=== PATIENT | male | born 1935 | race Caucasian/White ===

== ENCOUNTER 2016-10-17 16:29 | Emergency (ER) | payer MEDICARE, BC ==
[2016-10-17 17:50] VITALS: BP 145/82; PULSE 61; RESP 22; TEMP 98.7; O2SAT 93
== END 2016-10-17 19:29 | disposition home or self-care (01) | DRG 203 ==
LOC: ED 16:29
DX: J20.9 Acute bronchitis, unspecified (principal)
CPT/HCPCS: 87430; 87804; 99282; 99283

== ENCOUNTER 2016-11-23 13:33 | Day surgery (SDC) | payer MEDICARE, BC ==
[2016-11-23] MEDS ORDERED: BUPIVACAINE HCL 0.5% MPF 10 ML SOL ONE (14:34)
[2016-11-23] MEDS ORDERED: TRIAMCINOLONE ACETONIDE 40 MG/ML SUS ONE (14:34)
[2016-11-23 15:11] VITALS: TEMP 98.2
[2016-11-23 15:30] VITALS: BP 119/58; PULSE 56; RESP 10; O2SAT 96
== END 2016-11-23 15:28 | disposition home or self-care (01) | DRG 554 ==
LOC: SURG 13:33
PROVIDERS: ATTEND Nurse Anesthetist, Certified Registered
DX: M12.9 Arthropathy, unspecified (principal)
CPT/HCPCS: G0260; J3300

== ENCOUNTER 2016-12-07 06:46 | Day surgery (SDC) | payer MEDICARE, BC ==
[2016-12-07] MEDS ORDERED: PROPOFOL 500 MG/50 ML EMU IV ONE (07:06)
[2016-12-07] MEDS ORDERED: LIDOCAINE HCL 1% MPF SOL ONE (07:06)
[2016-12-07 09:18] VITALS: O2SAT 95
[2016-12-07 09:39] VITALS: BP 105/59; PULSE 57; RESP 18; TEMP 96.8
== END 2016-12-07 10:03 | disposition home or self-care (01) | DRG 951 ==
LOC: SURG 06:46
PROVIDERS: ATTEND Internal Medicine Gastroenterology
DX: Z12.11 Encounter for screening for malignant neoplasm of colon (principal); D12.3 Benign neoplasm of transverse colon; Z85.038 Personal history of other malignant neoplasm of large intestine; Z98.0 Intestinal bypass and anastomosis status; K57.30 Diverticulosis of large intestine without perforation or abscess without bleeding; K64.8 Other hemorrhoids
CPT/HCPCS: J2001; J2704

== ENCOUNTER 2018-07-21 08:17 | Outpatient (CLI) | payer MEDICARE, BC | END 2018-07-21 08:18 | disposition home or self-care (01) | DRG 556 | LOC: CONVCARE 08:17 | PROVIDERS: ATTEND Orthopaedic Surgery | DX: M25.531 Pain in right wrist (principal); M25.532 Pain in left wrist | CPT/HCPCS: 72220; 73110; 73562 ==

== ENCOUNTER 2018-11-27 20:18 | Inpatient (IN) | payer MEDICARE, BC ==
[2018-11-27] MEDS ORDERED: ACETAMINOPHEN 500 MG 500 MG TAB PO ONE (20:38)
[2018-11-27] MEDS ORDERED: ACETAMINOPHEN 500 MG 500 MG TAB ONE ×2 (20:39→20:40)
[2018-11-27 20:56] LABS: LACTIC ACID 2.1 mMol/L (0.0-2.0)
[2018-11-27 20:59] LABS: INR 2.72 (0.86-1.12)
[2018-11-27 21:06] LABS: BASOPHILS % (AUTO) 0 % (0-3); EOSINOPHILS % (AUTO) 0 % (0-9); HEMATOCRIT 40 % (39-53); HEMOGLOBIN 12.8 gm/dl (13.5-17.7); LYMPHOCYTES % (AUTO) 7.1 % (10-50); MEAN CORPUSCULAR HEMOGLOBIN 29.8 pg (27.0-32.0); MEAN CORPUSCULAR HGB CONC 32.2 gm/dl (32.0-36.0); MEAN CORPUSCULAR VOLUME 93 fL (80-100); MONOCYTES % (AUTO) 1.6 % (0-12); NEUTROPHILS % (AUTO) 90.6 % (37-80)
[2018-11-27 21:09] LABS: ALBUMIN 3.3 gm/dl (3.4-5.0); ALKALINE PHOSPHATASE 76 IU/L (46-116); ALT 24 IU/L (14-63); AST 17 IU/L (15-37); BILIRUBIN,TOTAL 0.7 mg/dl (0.2-1.0); BLOOD UREA NITROGEN 28 mg/dl (7-18); CALCIUM 8.6 mg/dl (8.5-10.1); CARBON DIOXIDE 26.5 mEq/L (21-32); CHLORIDE 107 mMol/L (98-107); CREATININE 1.39 mg/dl (0.80-1.30); GLUCOSE 107 mg/dl (74-106); POTASSIUM 3.9 mMol/L (3.5-5.1); SODIUM 142 mMol/L (136-145); TOTAL PROTEIN 6.4 gm/dl (6.4-8.2); TROP I < 0.017 ng/ml (0.000-0.056)
[2018-11-27 21:57] LABS: APPEARANCE,URINE Clear; BILIRUBIN,URINE NEGATIVE (NEGATIVE); COLOR,URINE Yellow; GLUCOSE, URINE (UA) NEGATIVE (NEGATIVE); KETONES,URINE NEGATIVE (NEGATIVE); LEUKOCYTE ESTERASE ,URINE NEGATIVE (NEGATIVE); NITRATE,URINE NEGATIVE (NEGATIVE); OCCULT BLOOD,URINE TRACE INTACT (NEG-TRACE); UROBILINOGEN,URINE 0.2 (0.2-1.0 EU)
[2018-11-27] MEDS ORDERED: VANCOMYCIN HCL 500 MG PDS 1,000 MG in SODIUM CHLORIDE 0.9% 250 ML 250 ML IV ONE (21:59)
[2018-11-27 22:07] LABS: BACTERIA TRACE (< 1+); CRYSTALS NEGATIVE (0-3 AVE/HPF); EPITHELIAL CELLS 0-1 (SQUAMOUS); RBC,URINE 0-3 (0-3AV/HPF); WBC,URINE 0-1 (0-5AV/HPF)
[2018-11-27] MEDS ORDERED: PIPERACILLIN/TAZOBACT 3.375 GM PDS IV ONE (22:13)
[2018-11-27] MEDS: PIPERACILLIN/TAZOBACT 3.375 GM 3.375 GM in SODIUM CHLORIDE 0.9% 100 ML 100 ML IV SCH (22:15)
[2018-11-27] MEDS ORDERED: BUDESONIDE/FORMOTEROL 160/4.5 AER INH PRN (22:16)
[2018-11-27] MEDS ORDERED: GABAPENTIN 300 MG CAP PO PRN (22:16)
[2018-11-27] MEDS ORDERED: VANCOMYCIN HYDROCHLORIDE 500 MG PDS IV ONE (22:54)
[2018-11-27] MEDS ORDERED: SODIUM CHLORIDE 0.9% 250 ML 250 ML IV ONE (22:55)
[2018-11-27] MEDS: SODIUM CHLORIDE 0.9% FLUSH 10 ML SOL IV SCH (22:59)
[2018-11-27] MEDS: SODIUM CHLORIDE 0.9% 1000ML 1,000 ML IV SCH (23:06)
[2018-11-28] MEDS ORDERED: SODIUM CHLORIDE 0.9% 500 ML 500 ML IV ONE ×3 (00:35→11:54)
[2018-11-28] MEDS: TRAMADOL HYDROCHLORIDE 50 MG TAB PO PRN ×3 (00:47→21:01)
[2018-11-28] MEDS: SODIUM CHLORIDE 0.9% 1000ML 1,000 ML IV SCH ×3 (02:40→16:54)
[2018-11-28] MEDS ORDERED: PIPERACILLIN/TAZOBACT 3.375 GM PDS IV ONE ×3 (06:23→22:12)
[2018-11-28] MEDS ORDERED: SODIUM CHLORIDE 0.9% 100 ML 100 ML IV ONE ×3 (06:23→22:12)
[2018-11-28] MEDS: PIPERACILLIN/TAZOBACT 3.375 GM 3.375 GM in SODIUM CHLORIDE 0.9% 100 ML 100 ML IV SCH ×3 (06:29→22:29)
[2018-11-28] MEDS: SODIUM CHLORIDE 0.9% FLUSH 10 ML SOL IV SCH ×5 (06:30→22:31)
[2018-11-28 07:28] LABS: CALCIUM 7.7 mg/dl (8.5-10.1); CARBON DIOXIDE 23.3 mEq/L (21-32); CREATININE 1.58 mg/dl (0.80-1.30); POTASSIUM 4.2 mMol/L (3.5-5.1)
[2018-11-28 07:29] LABS: HEMATOCRIT 33 % (39-53); HEMOGLOBIN 10.6 gm/dl (13.5-17.7); MEAN CORPUSCULAR HEMOGLOBIN 30.1 pg (27.0-32.0); MEAN CORPUSCULAR HGB CONC 32.1 gm/dl (32.0-36.0); MEAN CORPUSCULAR VOLUME 94 fL (80-100)
[2018-11-28 07:38] LABS: INR 2.55 (0.86-1.12)
[2018-11-28 07:54] LABS: BAND NEUTROPHILS % (MANUAL) 11 %; BASOPHILS % (MANUAL) 0 % (0-3); EOSINOPHILS % (MANUAL) 0 % (0-9); LYMPHOCYTES % (MANUAL) 6 % (10-50); MONOCYTES % (MANUAL) 4 % (0-12); NEUTROPHILS % (MANUAL) 78 % (37-80); NORMAL RBCS PRESENT
[2018-11-28] MEDS ORDERED: SODIUM CHLORIDE 0.9% 1000ML 1,000 ML IV ONE (08:47)
[2018-11-28] MEDS ORDERED: OLMESARTAN MEDOXOMIL 20 MG TAB PO SCH (09:00)
[2018-11-28] MEDS ORDERED: OMEPRAZOLE 20 MG CAPSULE PO SCH (09:00)
[2018-11-28] MEDS: ATORVASTATIN 10 MG TAB PO SCH (10:08)
[2018-11-28] MEDS: GABAPENTIN 300 MG CAP PO SCH ×2 (10:11→21:01)
[2018-11-28] MEDS: PANTOPRAZOLE SODIUM 40 MG ECT PO SCH (10:11)
[2018-11-28] MEDS ORDERED: ENOXAPARIN 40 MG SOL SC ONE (10:48)
[2018-11-28] MEDS: PROPAFENONE HCL 150 MG PO SCH ×3 (11:07→21:01)
[2018-11-28 13:51] LABS: BASOPHILS % (AUTO) 0 % (0-3); EOSINOPHILS % (AUTO) 1 % (0-9); HEMATOCRIT 33 % (39-53); HEMOGLOBIN 10.4 gm/dl (13.5-17.7); MEAN CORPUSCULAR HEMOGLOBIN 29.8 pg (27.0-32.0); MEAN CORPUSCULAR HGB CONC 31.9 gm/dl (32.0-36.0); MEAN CORPUSCULAR VOLUME 94 fL (80-100); NEUTROPHILS % (AUTO) 88.2 % (37-80)
[2018-11-28 13:56] LABS: BLOOD UREA NITROGEN 30 mg/dl (7-18); CALCIUM 7.5 mg/dl (8.5-10.1); CARBON DIOXIDE 22.4 mEq/L (21-32); CHLORIDE 111 mMol/L (98-107); GLUCOSE 116 mg/dl (74-106); SODIUM 141 mMol/L (136-145); TROP I < 0.017 ng/ml (0.000-0.056)
[2018-11-28] MEDS ORDERED: PHARMACOKINETICS 1 MISC ONE (15:00)
[2018-11-28 15:25] LABS: INR 2.47 (0.86-1.12)
[2018-11-28] MEDS: BUDESONIDE/FORMOTEROL 160/4.5 AER INH SCH ×2 (15:25→23:15)
[2018-11-28] MEDS ORDERED: WARFARIN SODIUM 5 MG TAB PO SCH ×2 (18:00)
[2018-11-28] MEDS: ACETAMINOPHEN 325 MG PO PRN (19:24)
[2018-11-28] MEDS ORDERED: VANCOMYCIN HYDROCHLORIDE 500 MG PDS IV ONE (23:04)
[2018-11-28] MEDS ORDERED: SODIUM CHLORIDE 0.9% 250 ML 250 ML IV ONE (23:05)
[2018-11-28] MEDS: VANCOMYCIN HCL 500 MG PDS 1,000 MG in SODIUM CHLORIDE 0.9% 250 ML 250 ML IV SCH (23:16)
[2018-11-29] MEDS: ALBUTEROL/IPRATROPIUM 1 VIAL SOL INH PRN (03:22)
[2018-11-29] MEDS: ACETAMINOPHEN 325 MG PO PRN (05:25)
[2018-11-29] MEDS ORDERED: PIPERACILLIN/TAZOBACT 3.375 GM PDS IV ONE ×3 (06:22→20:42)
[2018-11-29] MEDS ORDERED: SODIUM CHLORIDE 0.9% 100 ML 100 ML IV ONE ×3 (06:22→20:42)
[2018-11-29] MEDS: SODIUM CHLORIDE 0.9% FLUSH 10 ML SOL IV SCH ×5 (06:29→23:04)
[2018-11-29] MEDS: PIPERACILLIN/TAZOBACT 3.375 GM 3.375 GM in SODIUM CHLORIDE 0.9% 100 ML 100 ML IV SCH ×3 (06:29→21:05)
[2018-11-29 07:37] LABS: CALCIUM 8.1 mg/dl (8.5-10.1); CARBON DIOXIDE 20.8 mEq/L (21-32); CREATININE 1.09 mg/dl (0.80-1.30); POTASSIUM 4.3 mMol/L (3.5-5.1)
[2018-11-29 07:40] LABS: INR 1.86 (0.86-1.12)
[2018-11-29 07:41] LABS: BASOPHILS % (AUTO) 1 % (0-3); EOSINOPHILS % (AUTO) 0 % (0-9); HEMATOCRIT 32 % (39-53); HEMOGLOBIN 10.1 gm/dl (13.5-17.7); LYMPHOCYTES % (AUTO) 8.4 % (10-50); MEAN CORPUSCULAR HGB CONC 31.5 gm/dl (32.0-36.0); MEAN CORPUSCULAR VOLUME 95 fL (80-100); MONOCYTES % (AUTO) 7.8 % (0-12); NEUTROPHILS % (AUTO) 82.6 % (37-80)
[2018-11-29] MEDS ORDERED: FUROSEMIDE 20mg SOL IV ONE (08:15)
[2018-11-29] MEDS: PROPAFENONE HCL 150 MG PO SCH ×3 (08:54→20:49)
[2018-11-29] MEDS: PANTOPRAZOLE SODIUM 40 MG ECT PO SCH (08:55)
[2018-11-29] MEDS: BUDESONIDE/FORMOTEROL 160/4.5 AER INH SCH ×2 (08:55→20:52)
[2018-11-29] MEDS: GABAPENTIN 300 MG CAP PO SCH ×2 (08:55→20:49)
[2018-11-29] MEDS: ATORVASTATIN 10 MG TAB PO SCH (08:56)
[2018-11-29] MEDS: POLYETHYLENE GLYCOL 17 GM/1 TBS PDS PO SCH (09:32)
[2018-11-29] MEDS ORDERED: VANCOMYCIN HYDROCHLORIDE 500 MG PDS IV ONE ×2 (11:10→22:53)
[2018-11-29] MEDS ORDERED: SODIUM CHLORIDE 0.9% 250 ML 250 ML IV ONE ×2 (11:11→22:55)
[2018-11-29] MEDS: VANCOMYCIN HCL 500 MG PDS 1,000 MG in SODIUM CHLORIDE 0.9% 250 ML 250 ML IV SCH ×2 (11:22→23:03)
[2018-11-29] MEDS ORDERED: WARFARIN SODIUM 2.5 MG TAB PO SCH (18:00)
[2018-11-29] MEDS: TRAMADOL HYDROCHLORIDE 50 MG TAB PO PRN (20:50)
[2018-11-30] MEDS ORDERED: SODIUM CHLORIDE 0.9% 100 ML 100 ML IV ONE (04:36)
[2018-11-30] MEDS ORDERED: PIPERACILLIN/TAZOBACT 3.375 GM PDS IV ONE (04:36)
[2018-11-30] MEDS: SODIUM CHLORIDE 0.9% FLUSH 10 ML SOL IV SCH ×4 (05:54→21:15)
[2018-11-30] MEDS: PIPERACILLIN/TAZOBACT 3.375 GM 3.375 GM in SODIUM CHLORIDE 0.9% 100 ML 100 ML IV SCH (05:55)
[2018-11-30] MEDS: ALBUTEROL/IPRATROPIUM 1 VIAL SOL INH PRN (07:34)
[2018-11-30] MEDS: TRAMADOL HYDROCHLORIDE 50 MG TAB PO PRN ×2 (07:34→20:55)
[2018-11-30 08:23] LABS: INR 1.59 (0.86-1.12)
[2018-11-30 08:35] LABS: HEMATOCRIT 32 % (39-53); HEMOGLOBIN 10.5 gm/dl (13.5-17.7); MEAN CORPUSCULAR HEMOGLOBIN 29.9 pg (27.0-32.0); MEAN CORPUSCULAR HGB CONC 32.5 gm/dl (32.0-36.0); MEAN CORPUSCULAR VOLUME 92 fL (80-100)
[2018-11-30 08:40] LABS: BLOOD UREA NITROGEN 17 mg/dl (7-18); CALCIUM 8.2 mg/dl (8.5-10.1); CARBON DIOXIDE 24.6 mEq/L (21-32); CHLORIDE 108 mMol/L (98-107); CREATININE 1.06 mg/dl (0.80-1.30); GLUCOSE 98 mg/dl (74-106); POTASSIUM 4.1 mMol/L (3.5-5.1); SODIUM 141 mMol/L (136-145); TROP I < 0.017 ng/ml (0.000-0.056)
[2018-11-30] MEDS ORDERED: FUROSEMIDE 40 MG SOL IV SCH (09:00)
[2018-11-30] MEDS: PANTOPRAZOLE SODIUM 40 MG ECT PO SCH (09:19)
[2018-11-30] MEDS: PROPAFENONE HCL 150 MG PO SCH ×3 (09:19→20:33)
[2018-11-30] MEDS: ATORVASTATIN 10 MG TAB PO SCH (09:19)
[2018-11-30] MEDS: GABAPENTIN 300 MG CAP PO SCH ×2 (09:20→20:32)
[2018-11-30] MEDS: BUDESONIDE/FORMOTEROL 160/4.5 AER INH SCH ×2 (09:20→20:34)
[2018-11-30] MEDS: POLYETHYLENE GLYCOL 17 GM/1 TBS PDS PO SCH (09:25)
[2018-11-30] MEDS ORDERED: LEVOFLOXACIN 25 MG/ML 500 MG in SODIUM CHLORIDE 0.9% 100 ML 100 ML IV SCH (09:45)
[2018-11-30 09:50] LABS: BAND NEUTROPHILS % (MANUAL) 1 %; BASOPHILS % (MANUAL) 0 % (0-3); EOSINOPHILS % (MANUAL) 2 % (0-9); LYMPHOCYTES % (MANUAL) 19 % (10-50); MONOCYTES % (MANUAL) 10 % (0-12); NEUTROPHILS % (MANUAL) 68 % (37-80); NORMAL RBCS NORMAL RBCS; PLATELET MORPHOLOGY COMMENT DECREASED
[2018-11-30] MEDS: LEVOFLOXACIN 500 MG TAB PO SCH (13:36)
[2018-11-30] MEDS: WARFARIN SODIUM 5 MG TAB PO SCH (17:57)
[2018-11-30] MEDS ORDERED: CETIRIZINE HYDROCHLORIDE 10 MG TAB PO ONE (21:03)
[2018-12-01] MEDS: SODIUM CHLORIDE 0.9% FLUSH 10 ML SOL IV SCH ×4 (07:02→23:20)
[2018-12-01 07:22] LABS: BASOPHILS % (AUTO) 1 % (0-3); EOSINOPHILS % (AUTO) 2 % (0-9); HEMATOCRIT 35 % (39-53); HEMOGLOBIN 11.4 gm/dl (13.5-17.7); MEAN CORPUSCULAR HEMOGLOBIN 30.3 pg (27.0-32.0); MEAN CORPUSCULAR HGB CONC 32.7 gm/dl (32.0-36.0); MEAN CORPUSCULAR VOLUME 93 fL (80-100); MONOCYTES % (AUTO) 9.6 % (0-12); NEUTROPHILS % (AUTO) 65.6 % (37-80)
[2018-12-01 07:30] LABS: INR 1.47 (0.86-1.12)
[2018-12-01 07:33] LABS: CALCIUM 8.6 mg/dl (8.5-10.1); CARBON DIOXIDE 26.7 mEq/L (21-32); CREATININE 1.05 mg/dl (0.80-1.30); POTASSIUM 3.9 mMol/L (3.5-5.1)
[2018-12-01] MEDS ORDERED: FUROSEMIDE 40 MG SOL IV SCH (09:00)
[2018-12-01] MEDS: ATORVASTATIN 10 MG TAB PO SCH (09:04)
[2018-12-01] MEDS: PANTOPRAZOLE SODIUM 40 MG ECT PO SCH (09:04)
[2018-12-01] MEDS: GABAPENTIN 300 MG CAP PO SCH ×2 (09:04→20:23)
[2018-12-01] MEDS: POLYETHYLENE GLYCOL 17 GM/1 TBS PDS PO SCH (09:05)
[2018-12-01] MEDS: PROPAFENONE HCL 150 MG PO SCH ×3 (09:05→20:23)
[2018-12-01] MEDS: BUDESONIDE/FORMOTEROL 160/4.5 AER INH SCH ×2 (09:06→20:24)
[2018-12-01] MEDS: LEVOFLOXACIN 500 MG TAB PO SCH (09:08)
[2018-12-01] MEDS: TRAMADOL HYDROCHLORIDE 50 MG TAB PO PRN (16:35)
[2018-12-01] MEDS: WARFARIN SODIUM 5 MG TAB PO SCH (17:54)
[2018-12-01] MEDS ORDERED: CETIRIZINE HYDROCHLORIDE 10 MG TAB PO SCH ×2 (21:00)
[2018-12-02] MEDS: SODIUM CHLORIDE 0.9% FLUSH 10 ML SOL IV SCH (06:40)
[2018-12-02 08:07] LABS: CALCIUM 8.3 mg/dl (8.5-10.1); CARBON DIOXIDE 26.6 mEq/L (21-32); CREATININE 1.07 mg/dl (0.80-1.30); POTASSIUM 3.9 mMol/L (3.5-5.1)
[2018-12-02 08:23] LABS: BASOPHILS % (AUTO) 1 % (0-3); EOSINOPHILS % (AUTO) 2 % (0-9); HEMATOCRIT 34 % (39-53); HEMOGLOBIN 10.8 gm/dl (13.5-17.7); LYMPHOCYTES % (AUTO) 21.9 % (10-50); MEAN CORPUSCULAR HEMOGLOBIN 29.9 pg (27.0-32.0); MEAN CORPUSCULAR HGB CONC 32.1 gm/dl (32.0-36.0); MEAN CORPUSCULAR VOLUME 93 fL (80-100); MONOCYTES % (AUTO) 10.8 % (0-12); NEUTROPHILS % (AUTO) 64.1 % (37-80)
[2018-12-02 08:43] LABS: INR 1.35 (0.86-1.12)
[2018-12-02] MEDS: LEVOFLOXACIN 500 MG TAB PO SCH (09:20)
[2018-12-02] MEDS: GABAPENTIN 300 MG CAP PO SCH (09:20)
[2018-12-02] MEDS: POLYETHYLENE GLYCOL 17 GM/1 TBS PDS PO SCH (09:21)
[2018-12-02] MEDS: PROPAFENONE HCL 150 MG PO SCH ×2 (09:21→14:03)
[2018-12-02] MEDS: PANTOPRAZOLE SODIUM 40 MG ECT PO SCH (09:21)
[2018-12-02] MEDS: BUDESONIDE/FORMOTEROL 160/4.5 AER INH SCH (09:22)
[2018-12-02] MEDS: ATORVASTATIN 10 MG TAB PO SCH (09:23)
[2018-12-02 09:27] VITALS: BP 103/50; PULSE 58; TEMP 97.2
[2018-12-02] MEDS: TRAMADOL HYDROCHLORIDE 50 MG TAB PO PRN (09:29)
[2018-12-02 10:05] VITALS: RESP 20; O2SAT 92
== END 2018-12-02 14:10 | disposition home or self-care (01) | DRG 872 ==
LOC: ED 20:18 → ACUTE CARE 22:09
PROVIDERS: ADMIT Family Medicine; ATTEND Family Medicine
PROC: F01L5ZZ Range of Motion and Joint Integrity Assessment of Musculoskeletal System - Lower Back / Lower Extremity (ICD-10-PCS; principal; 2018-11-30)
PROC: F01L0ZZ Muscle Performance Assessment of Musculoskeletal System - Lower Back / Lower Extremity (ICD-10-PCS; 2018-11-30)
PROC: F01ZBZZ Bed Mobility Assessment (ICD-10-PCS; 2018-11-30)
DX: A41.9 Sepsis, unspecified organism (principal); I48.2 Chronic atrial fibrillation; J98.11 Atelectasis; R06.02 Shortness of breath; R07.9 Chest pain, unspecified; R60.9 Edema, unspecified; R09.02 Hypoxemia; B96.20 Unspecified Escherichia coli [E. coli] as the cause of diseases classified elsewhere; Z79.01 Long term (current) use of anticoagulants
CPT/HCPCS: 36415; 51798; 71045; 80048; 80053; 81001; 83880; 84484; 85007; 85025; 85027; 85610; 85730; 87040; 93005; 94640; 94664; 94762; 99222; 99291; J1650; J1940; J2543; J3370; A9270-GY

== ENCOUNTER 2018-12-27 11:58 | Day surgery (SDC) | payer MEDICARE, BC ==
[2018-12-27] MEDS ORDERED: BUPIVACAINE HCL 0.25% MPF 30 ML SOL INFIL ONE (12:57)
[2018-12-27] MEDS: TRIAMCINOLONE ACETONIDE 40 MG/ML SUS ONE ×3 (13:07→13:19)
[2018-12-27 13:17] VITALS: O2SAT 94
[2018-12-27 13:34] VITALS: BP 107/72; PULSE 70; RESP 18; TEMP 97.6
== END 2018-12-27 13:55 | disposition home or self-care (01) | DRG 554 ==
LOC: SURG 11:58
PROVIDERS: ATTEND Nurse Anesthetist, Certified Registered
DX: M12.9 Arthropathy, unspecified (principal)
CPT/HCPCS: J3300

== ENCOUNTER 2019-01-27 13:57 | Emergency (ER) | payer MEDICARE, BC ==
[2019-01-27 14:35] VITALS: PULSE 68; TEMP 97.1
[2019-01-27 14:59] LABS: HEMATOCRIT 37 % (39-53); MEAN CORPUSCULAR HEMOGLOBIN 30.2 pg (27.0-32.0); MEAN CORPUSCULAR HGB CONC 32.4 gm/dl (32.0-36.0); MEAN CORPUSCULAR VOLUME 93 fL (80-100)
[2019-01-27 15:08] LABS: INR 2.26 (0.86-1.12)
[2019-01-27 15:31] VITALS: BP 125/64; RESP 18; O2SAT 95
[2019-01-27 15:40] LABS: BAND NEUTROPHILS % (MANUAL) 3 %; BASOPHILS % (MANUAL) 0 % (0-3); EOSINOPHILS % (MANUAL) 1 % (0-9); LYMPHOCYTES % (MANUAL) 15 % (10-50); MONOCYTES % (MANUAL) 6 % (0-12); NEUTROPHILS % (MANUAL) 75 % (37-80); NORMAL RBCS PRESENT
== END 2019-01-27 15:35 | disposition home or self-care (01) | DRG 605 ==
LOC: ED 13:57
DX: S90.01XA Contusion of right ankle, initial encounter (principal); Z79.01 Long term (current) use of anticoagulants; I48.91 Unspecified atrial fibrillation
CPT/HCPCS: 36415; 85007; 85027; 85610; 99282

== ENCOUNTER 2019-02-20 12:53 | Day surgery (SDC) | payer MEDICARE, BC ==
[2019-02-20] MEDS ORDERED: BUPIVACAINE HCL 0.25% MPF 30 ML SOL INFIL ONE (14:04)
[2019-02-20] MEDS ORDERED: DEXAMETHASONE SOD PHOS PF 10 MG/ML SOL IJ ONE (14:04)
[2019-02-20 14:31] VITALS: BP 115/66; PULSE 60; RESP 18; TEMP 97.4; O2SAT 96
== END 2019-02-20 14:46 | disposition home or self-care (01) | DRG 552 ==
LOC: SURG 12:53
PROVIDERS: ATTEND Nurse Anesthetist, Certified Registered
DX: M53.3 Sacrococcygeal disorders, not elsewhere classified (principal)
CPT/HCPCS: J1100

== ENCOUNTER 2019-03-06 13:12 | Day surgery (SDC) | payer MEDICARE, BC ==
[2019-03-06] MEDS ORDERED: BUPIVACAINE HCL 0.5% MPF 10 ML SOL ONE (13:40)
[2019-03-06] MEDS ORDERED: LIDOCAINE HCL 1% MPF 30 SOL ONE (13:40)
[2019-03-06 14:01] VITALS: RESP 20
[2019-03-06 14:33] VITALS: BP 125/70; PULSE 64; TEMP 97.8; O2SAT 98
== END 2019-03-06 14:37 | disposition home or self-care (01) | DRG 554 ==
LOC: SURG 13:12
PROVIDERS: ATTEND Nurse Anesthetist, Certified Registered
DX: M12.88 Other specific arthropathies, not elsewhere classified, other specified site (principal)
CPT/HCPCS: J2001